=== PATIENT | male | born 1970 | race Caucasian/White ===

== ENCOUNTER 2021-06-02 14:14 | Emergency (ER) | payer BC, OTHER ==
[~2021-06-02] VITALS: Ht 167.6 cm; Wt 108.9 kg
--- NOTE | 2021-06-02 14:24 | NUR ---
[employer] WORKER AT BEDSIDE
--- NOTE | 2021-06-02 14:46 | NUR ---
DR FRANKLIN AT BEDSIDE
[2021-06-02 15:00] LABS: BASOPHILS % (AUTO) 0.4 % (0.0-2.0); EOSINOPHILS % (AUTO) 0.1 % (0.0-6.0); HEMATOCRIT 46 % (39-51); HEMOGLOBIN 15.7 g/dL (13.5-17.5); LYMPHOCYTES # (AUTO) 2.6 K/uL (0.8-4.8); LYMPHOCYTES % (AUTO) 21.7 % (20.0-44.0); MEAN CORPUSCULAR HGB CONC 34 g/dl (31.0-36.0); MEAN CORPUSCULAR VOLUME 90 fL (80-96); MONOCYTES # (AUTO) 0.8 K/uL (0.1-1.30); MONOCYTES % (AUTO) 7.1 % (2.0-12.0); NEUTROPHILS # (AUTO) 8.5 K/uL (1.8-8.9); NEUTROPHILS % (AUTO) 70.7 % (43.0-81.0); PLATELET COUNT (AUTO) 286 K/uL (150-450); RED BLOOD CELL COUNT(AUTO) 5.08 MIL/uL (4.5-6.0)
[2021-06-02 15:24] LABS: CALCIUM, SERUM 9.8 mg/dL (8.5-10.1); CARBON DIOXIDE 22 mmol/L (21-32); CHLORIDE 98 mmol/L (98-107); CREATININE 1.1 mg/dL (0.6-1.3); GLUCOSE 224 mg/dL (74-106); POTASSIUM 3.3 mmol/L (3.5-5.1); SODIUM SERUM 133 mmol/L (136-145); UREA NITROGEN, BLOOD 8 mg/dL (7-18)
--- NOTE | 2021-06-02 16:03 | NUR ---
COVID SWAB DONE AND SENT TO LAB
--- NOTE | 2021-06-02 16:28 | NUR ---
CALLED LAB FOR TROPONIN DRAW PER DR FRANKLIN
[2021-06-02] MEDS ORDERED: FUROSEMIDE 20 MG/2 ML VIAL ONE (16:30)
[2021-06-02] MEDS ORDERED: FUROSEMIDE 20 MG/2 ML VIAL IV ONE (16:30)
[2021-06-02] MEDS ORDERED: LORAZEPAM 0.5 MG TABLET ONE (16:30)
[2021-06-02] MEDS ORDERED: LORAZEPAM 1 MG TABLET PO ONE (16:30)
--- NOTE | 2021-06-02 16:30 | NUR ---
MIKALA AT BEDSIDE FOR BLOOD DRAW
--- NOTE | 2021-06-02 16:35 | NUR ---
PATIENT FEELING BETTER, REFUSED ATIVAN AND MD GARIMA AWARE
--- NOTE | 2021-06-02 16:56 | NUR ---
IV removed. Catheter intact and site benign. Pressure and 4x4 applied to site. No bleeding noted.
--- NOTE | 2021-06-02 17:02 | NUR ---
PATIENT LEFT AMA, AWARE OF THE RISKS ADVISED BY DR FRANKLIN
[2021-06-02 17:04] VITALS: BP 142/90
== END 2021-06-02 17:05 | disposition left against medical advice (07) ==
LOC: ER 14:16
DX: R07.89 Other chest pain (principal); Z20.822 Contact with and (suspected) exposure to COVID-19; R94.31 Abnormal electrocardiogram [ECG] [EKG]; R60.0 Localized edema; J45.909 Unspecified asthma, uncomplicated; Z53.29 Procedure and treatment not carried out because of patient's decision for other reasons
CPT/HCPCS: 36415; 71045; 80048; 83735; 83880; 84484 ×2; 85025; 87426; 93005; 99285; C9803; J1940